=== PATIENT | female | born 1955 | race Caucasian/White ===

== ENCOUNTER 2017-10-16 09:29 | Emergency (ER) | payer OTHER, MEDICARE ==
[2017-10-16 09:47] VITALS: BP 138/90
--- NOTE | 2017-10-16 09:47 | UC ---
Lower Extremity/Ankle HPI - HPI Summary HPI Summary: This nice 62-year-old lady has a past medical history of cerebral ataxia. Patient reports falling 6 days ago landing on her right side. The last 6 days patient has had pain in her left hip and femur. States the pain is about 2 or 3 at rest and gets up to 8 out of 10 with ambulation does have difficulty ambulating with a walker. - History of Current Complaint Chief Complaint: UCLowerExtremity Stated Complaint: LEG INJURY Time Seen by Provider: 10/16/17 09:46 Hx Obtained From: Patient ?: No Onset/Duration: Sudden Onset, Lasting Days - 6, Still Present Severity Initially: Moderate Severity Currently: Moderate Aggravating Factor(s): Standing, Ambulation Alleviating Factor(s): Rest Able to Bear Weight: Yes - Allergies/Home Medications Allergies/Adverse Reactions: Allergies Allergy/AdvReac Type Severity Reaction Status Date / Time sulfamethoxazole Allergy Rash Verified 10/16/17 09:33 [From Bactrim] trimethoprim [From Bactrim] Allergy Rash Verified 10/16/17 09:33 PMH/Surg Hx/FS Hx/Imm Hx Previously Healthy: No Endocrine History: Dyslipidemia Cardiovascular History: Hypertension Neurological History: Other Other Neurological History: cerebral ataxia - Surgical History Surgical History: Yes Surgery Procedure, Year, and Place: APPENDIX - 1960. - 1993. RT BROKEN FEMUR - 2011 [facility] [place] - Family History Known Family History: Positive: None - Social History Occupation: Disabled Lives: With Family Alcohol Use: None Substance Use Type: None Smoking Status (MU): Never Smoked Tobacco Review of Systems Constitutional: Negative Skin: Negative Eyes: Negative ENT: Negative Respiratory: Negative Cardiovascular: Negative Gastrointestinal: Negative Genitourinary: Negative Motor: Negative Neurovascular: Negative Musculoskeletal: Arthralgia - Right hip and femur Neurological: Negative Psychological: Negative Is Patient Immunocompromised?: No All Other Systems Reviewed And Are Negative: Yes Physical Exam Triage Information Reviewed: Yes Appearance: Well-Appearing, No Pain Distress, Well-Nourished Vital Signs Reviewed: Yes Eye Exam: Normal Eyes: Positive: Conjunctiva Clear ENT Exam: Normal ENT: Positive: Normal ENT inspection, Hearing grossly normal. Negative: Nasal congestion, Trismus, Muffled voice, Hoarse voice Dental Exam: Normal Neck exam: Normal Neck: Positive: Supple, Nontender, No Lymphadenopathy Respiratory Exam: Normal Respiratory: Positive: Chest non-tender, Lungs clear, Normal breath sounds, No respiratory distress, No accessory muscle use Cardiovascular Exam: Normal Cardiovascular: Positive: RRR, No Murmur, Pulses Normal, Brisk Capillary Refill Musculoskeletal Exam: Normal Musculoskeletal: Positive: Strength Intact, ROM Intact, No Edema Neurological Exam: Normal Neurological: Positive: Alert, Muscle Tone Normal Psychological Exam: Normal Skin Exam: Normal Diagnostics - Radiology No standard instances Xray Interpretation: No Acute Changes Radiology Interpretation Completed By: ED Physician, Radiologist - Denies be an aneurysm. Lower Extremity Course/Dx - Course Course Of Treatment: Reviewed x-ray reports with patient and . They wish to follow up with primary care doctor on Wednesday. Patient has been only taking Tylenol 1 time a day. I encouraged her to take dose as recommended on bottle. Patient refuses any other pain medication - Differential Dx/Diagnosis Provider Diagnoses: Contusion right hip and thigh Discharge - Sign-Out/Discharge Documenting (check all that apply): Discharge - Discharge Plan Condition: Stable Disposition: HOME Patient Education Materials: Acetaminophen (By mouth), Hip Contusion (ED) Referrals: Sundar Davis MD [Primary Care Provider] - 2 Days Additional Instructions: Ambulate with walker. Tylenol for pain. to emergency department for increasing or worsening pain or symptoms - Billing Disposition and Condition Condition: STABLE Disposition: HOME
--- NOTE | 2017-10-16 10:41 | RAD ---
INDICATION: Right hip injury. COMPARISON: Comparison is made with prior x-ray studies of the right hip from October 26, 2011 and October 27, 2011 TECHNIQUE: An AP view of the pelvis and frontal and lateral views of the right hip were obtained. FINDINGS: The patient is status post operative reduction internal fixation of an intertrochanteric and subtrochanteric fracture of the proximal right femur. There is an intramedullary sanjana and femoral head nail present in place. The orthopedic hardware appears intact. No acute fracture is seen. Joint spaces appear maintained. IMPRESSION: STATUS POST OPERATIVE REDUCTION AND INTERNAL FIXATION OF A REMOTE FRACTURE OF THE PROXIMAL RIGHT FEMUR, NO ACUTE FRACTURE IS SEEN.
--- NOTE | 2017-10-16 10:43 | RAD ---
INDICATION: Right femur injury. TECHNIQUE: 2 views of the right femur were obtained. FINDINGS: The patient is status post operative reduction and internal fixation of a fracture of the proximal right femur. There is an intramedullary sanjana in place transfixed distally with a single screw. There is also a femoral head nail in place. There is lateral soft tissue swelling. No acute fracture is seen. IMPRESSION: POSTSURGICAL CHANGES, NO EVIDENCE FOR ACUTE FRACTURE.
== END 2017-10-16 11:02 | disposition home or self-care (01) ==
LOC: UCEAST 09:29
DX: S70.01XA Contusion of right hip, initial encounter (principal); Z88.2 Allergy status to sulfonamides; S70.11XA Contusion of right thigh, initial encounter; W19.XXXA Unspecified fall, initial encounter; Y93.9 Activity, unspecified; Y92.9 Unspecified place or not applicable; G11.9 Hereditary ataxia, unspecified; E78.5 Hyperlipidemia, unspecified; I10 Essential (primary) hypertension
CPT/HCPCS: 99211; G0463

== ENCOUNTER 2021-06-08 20:54 | Observation (INO) ==
[2021-06-08] MEDS ORDERED: NS 0.9% 1000 ml BAG 1,000 ML IV ONE (23:57)
[2021-06-08] MEDS ORDERED: Ondansetron 4 mg VIAL 2 MG/ML 2 ml VIAL IV ONE (23:57)
[2021-06-09 00:57] LABS: ABS Eosinophils 0.1 10^3/ul (0-0.6); ABS Lymphocytes 1.3 10^3/ul (1.0-4.8); ABS Monocytes 0.9 10^3/ul (0-0.8); ABS Neutrophils 4.8 10^3/ul (1.5-7.7); Eosinophil % 1.6 %; Hematocrit 37 % (35-47); Lymphocyte % 18.7 %; Mean Corpuscular HGB Conc 33 g/dL (31-36); Mean Corpuscular Hemoglobin 28 pg (27-31); Mean Corpuscular Volume 87 fL (80-97); Mean Platelet Volume 7.9 fL (7.4-10.4); Platelet Count 267 10^3/uL (150-450); Red Blood Count 4.24 10^6 /uL (3.70-4.87); Red Cell Distribution Width 14 % (10-15); White Blood Count 7.2 10^3/uL (3.5-10.8)
[2021-06-09 01:13] LABS: Anion Gap 9 mmol/L (2-11); Blood Urea Nitrogen 21 mg/dL (6-24); CO2 Carbon Dioxide 29 mmol/L (22-32); Calcium 9.3 mg/dL (8.6-10.3); Chloride 103 mmol/L (101-111); Glucose 91 mg/dL (70-100); Potassium 3.6 mmol/L (3.5-5.0); Sodium 141 mmol/L (135-145); eGFR CKD-EPI 107.4 (>60)
[2021-06-09 01:19] LABS: Troponin I 0.03 ng/mL (<0.03)
[2021-06-09] MEDS ORDERED: Iodixanol (CONTRAST) 320 MG/ML 100 ML SDV IV ONE (01:30)
[2021-06-09 04:21] LABS: C Reactive Protein 6.34 mg/L (<8.01)
[2021-06-09] MEDS: cefTRIAXone 1 gm/50 mL NS BAG 1 GM/50 ML BAG IVPB SCH (05:05)
[2021-06-09] MEDS: Enoxaparin 40 MG/0.4 ML SYR SUBCUT SCH (05:05)
[2021-06-09 05:13] LABS: Troponin I 0.04 ng/mL (<0.03)
[2021-06-09 10:12] LABS: Troponin I 0.03 ng/mL (<0.03)
[2021-06-10 05:52] LABS: Hematocrit 34 % (35-47); Hemoglobin 11.1 g/dL (12.0-16.0); Mean Corpuscular HGB Conc 33 g/dL (31-36); Mean Corpuscular Hemoglobin 29 pg (27-31); Mean Corpuscular Volume 87 fL (80-97); Mean Platelet Volume 7.8 fL (7.4-10.4); Platelet Count 251 10^3/uL (150-450); Red Blood Count 3.89 10^6 /uL (3.70-4.87); Red Cell Distribution Width 14 % (10-15); White Blood Count 6.4 10^3/uL (3.5-10.8)
[2021-06-10 06:14] LABS: Calcium 8.9 mg/dL (8.6-10.3); Potassium 3.5 mmol/L (3.5-5.0); eGFR CKD-EPI 108.5 (>60)
[2021-06-10] MEDS: Enoxaparin 40 MG/0.4 ML SYR SUBCUT SCH (08:29)
[2021-06-10] MEDS: cefTRIAXone 1 gm/50 mL NS BAG 1 GM/50 ML BAG IVPB SCH (08:29)
[2021-06-10] MEDS ORDERED: Senna TAB 8.6 mg TAB PO PRN (11:45)
[2021-06-10 15:55] VITALS: BP 145/80
== END 2021-06-10 17:05 | disposition home or self-care (01) ==
LOC: ED 20:54 → INTOOBSV 06-09 04:12 → EDHOLD 06-09 04:12 → SUATTDRO 06-09 04:12 → MEDTELE 06-09 08:38
PROVIDERS: ADMIT Internal Medicine; ATTEND Internal Medicine

== ENCOUNTER 2021-06-18 13:52 | Inpatient (IN) ==
[2021-06-18 18:17] LABS: ABS Eosinophils 0.1 10^3/ul (0-0.6); ABS Lymphocytes 1.1 10^3/ul (1.0-4.8); ABS Monocytes 0.9 10^3/ul (0-0.8); ABS Neutrophils 6.8 10^3/ul (1.5-7.7); Eosinophil % 1.7 %; Hematocrit 40 % (35-47); Hemoglobin 13.3 g/dL (12.0-16.0); Lymphocyte % 12.5 %; Mean Corpuscular HGB Conc 34 g/dL (31-36); Mean Corpuscular Hemoglobin 29 pg (27-31); Mean Corpuscular Volume 87 fL (80-97); Mean Platelet Volume 8.4 fL (7.4-10.4); Nucleated Red Blood Cells % 0.1; Platelet Count 317 10^3/uL (150-450); Red Blood Count 4.55 10^6 /uL (3.70-4.87); Red Cell Distribution Width 14 % (10-15)
[2021-06-18 18:32] LABS: Albumin 4.1 g/dL (3.2-5.2); Albumin/Globulin Ratio 1.6 (1-3); C Reactive Protein 1.11 mg/L (<8.01); Calcium 9.6 mg/dL (8.6-10.3); Globulin 2.6 g/dL (2-4); Total Bilirubin 0.4 mg/dL (0.2-1.0); Total Protein 6.7 g/dL (6.4-8.9); eGFR CKD-EPI 96.5 (>60)
[2021-06-18 19:11] LABS: Potassium 3.6 mmol/L (3.5-5.0)
[2021-06-18 19:58] LABS: Urine Appearance Cloudy; Urine Bilirubin Negative (Negative); Urine Blood Negative (Negative); Urine Color Yellow; Urine Glucose Negative (Negative); Urine Ketones Trace (Negative); Urine Nitrite Negative (Negative); Urine Protein 1+(30 mg/dL) (Negative); Urine Specific Gravity 1.018 (1.002-1.030); Urine Urobilinogen Negative (Negative)
[2021-06-18 20:03] LABS: Urine Bacteria 1+ (Absent); Urine Red Blood Cell Trace(0-2/hpf) (Absent); Urine Squamous Epithelial Cell Present (Absent); Urine White Blood Cell 1+(6-10/hpf) (Absent)
[2021-06-18] MEDS ORDERED: Immune Globulin IV Order (CPOE ENTRY PROTOCOL) IV SCH (21:00)
[2021-06-18] MEDS ORDERED: diPHENhydraMINE IV 50 MG/ML 1 ml VIAL (BENADRYL) IV ONE (21:24)
[2021-06-18 22:05] LABS: TSH Ultra Thyroid Stim Horm 2.47 mcIU/mL (0.34-5.60)
[2021-06-18] MEDS ORDERED: NS 0.9% 1000 ml BAG 1,000 ML IV ONE (22:21)
[2021-06-18 22:30] LABS: Body Fluid Source Cerebral Spinal
[2021-06-18 22:36] LABS: Body Fluid Appearance Clear; Body Fluid Color Colorless; CSF Tube # 4
[2021-06-18 22:45] LABS: CSF Glucose 77 mg/dL (40-70)
[2021-06-18 22:52] LABS: Body Fluid Appearance Clear; Body Fluid Color Colorless; Body Fluid Source Cerebral Spinal; CSF Tube # 1
[2021-06-18 22:58] LABS: Body Fluid WBC 0 /mcL
[2021-06-18 23:02] LABS: Erythrocyte Sed Rate 4 mm/Hr (0-29)
[2021-06-18 23:14] LABS: Body Fluid WBC 0 /mcL
[2021-06-19] MEDS: PRIVIGEN IV SCH ×2 (00:18→22:21)
[2021-06-19] MEDS: IMMUNE GLOB IV SCH ×2 (00:18→22:21)
[2021-06-19] MEDS ORDERED: NS 0.9% 1000 ml BAG 1,000 ML IV SCH (00:45)
[2021-06-19 01:02] LABS: Rapid COVID-19 Molecular Undetected (Undetected)
[2021-06-19] MEDS: Enoxaparin 40 MG/0.4 ML SYR SUBCUT SCH ×2 (03:15→20:59)
[2021-06-19 06:34] LABS: Calcium 8.2 mg/dL (8.6-10.3); Potassium 3.2 mmol/L (3.5-5.0); eGFR CKD-EPI 101.4 (>60)
[2021-06-19] MEDS: Aspirin EC 81 mg TAB.EC (enteric coated) PO SCH (08:04)
[2021-06-19] MEDS ORDERED: Potassium Chlor 20 meq TAB.ER PO ONE (09:03)
[2021-06-19] MEDS: KCL 20 MEQ/100 ML IVPREMIX 20 MEQ/100 ML BAG IV SCH ×2 (09:37→12:08)
[2021-06-19] MEDS ORDERED: Cyanocobalamin INJ 1,000 MCG/ML VIAL 1 ML VIAL IM ONE (10:00)
[2021-06-19 10:43] LABS: Magnesium 1.8 mg/dL (1.9-2.7)
[2021-06-19] MEDS ORDERED: Gadoteridol (CONTRAST) 279.3 MG/ML 10 ML IV ONE (19:06)
[2021-06-19] MEDS ORDERED: diPHENhydraMINE IV 50 MG/ML 1 ml VIAL (BENADRYL) IV SCH (20:15)
[2021-06-19] MEDS: Acetaminophen IV 1 GM/100ML 100 ML IV SCH (20:59)
[2021-06-20] MEDS ORDERED: cefTRIAXone 1 gm/50 mL NS BAG 1 GM/50 ML BAG IVPB SCH (01:00)
[2021-06-20 06:43] LABS: Calcium 8.1 mg/dL (8.6-10.3); Magnesium 1.7 mg/dL (1.9-2.7); Potassium 3.7 mmol/L (3.5-5.0); eGFR CKD-EPI 107.9 (>60)
[2021-06-20] MEDS ORDERED: Magnesium Sulfate IV 3 GM in NS 0.9% 100 ml BAG 100 ML IVPB ONE (07:45)
[2021-06-20] MEDS: Aspirin EC 81 mg TAB.EC (enteric coated) PO SCH (09:25)
[2021-06-20] MEDS ORDERED: diPHENhydraMINE IV 50 MG/ML 1 ml VIAL (BENADRYL) IV ONE (19:39)
[2021-06-20] MEDS: Acetaminophen IV 1 GM/100ML 100 ML IV SCH (20:55)
[2021-06-20] MEDS: Enoxaparin 40 MG/0.4 ML SYR SUBCUT SCH (20:58)
[2021-06-20] MEDS ORDERED: Senna TAB 8.6 mg TAB PO PRN (21:24)
[2021-06-20] MEDS: IMMUNE GLOB IV SCH (22:04)
[2021-06-20] MEDS: PRIVIGEN IV SCH (22:04)
[2021-06-21 07:36] LABS: Calcium 8.2 mg/dL (8.6-10.3); Potassium 3.8 mmol/L (3.5-5.0); eGFR CKD-EPI 107.9 (>60)
[2021-06-21] MEDS: Aspirin EC 81 mg TAB.EC (enteric coated) PO SCH (08:24)
[2021-06-21] MEDS ORDERED: diPHENhydraMINE IV 50 MG/ML 1 ml VIAL (BENADRYL) IV ONE (19:49)
[2021-06-21] MEDS: Acetaminophen IV 1 GM/100ML 100 ML IV SCH (20:42)
[2021-06-21] MEDS: Enoxaparin 40 MG/0.4 ML SYR SUBCUT SCH (20:50)
[2021-06-21] MEDS: PRIVIGEN IV SCH (21:35)
[2021-06-21] MEDS: IMMUNE GLOB IV SCH (21:35)
[2021-06-21] MEDS ORDERED: Ondansetron 4 mg VIAL 2 MG/ML 2 ml VIAL IV ONE (23:28)
[2021-06-22] MEDS: Aspirin EC 81 mg TAB.EC (enteric coated) PO SCH (08:19)
[2021-06-22] MEDS ORDERED: diPHENhydraMINE IV 50 MG/ML 1 ml VIAL (BENADRYL) IV ONE (20:15)
[2021-06-22] MEDS ORDERED: Ondansetron 4 mg VIAL 2 MG/ML 2 ml VIAL IV PRN (20:21)
[2021-06-22] MEDS: Acetaminophen IV 1 GM/100ML 100 ML IV SCH (20:55)
[2021-06-22] MEDS: IMMUNE GLOB IV SCH (22:07)
[2021-06-22] MEDS: PRIVIGEN IV SCH (22:07)
[2021-06-22] MEDS: Enoxaparin 40 MG/0.4 ML SYR SUBCUT SCH (22:29)
[2021-06-23] MEDS: Aspirin EC 81 mg TAB.EC (enteric coated) PO SCH (07:16)
[2021-06-23 11:51] LABS: SS-A/Ro Antibody <0.2 U; SS-B/La Antibody <0.2 U
[2021-06-23 12:49] VITALS: BP 139/84
[2021-06-23 15:39] LABS: Albumin 3.1 g/dL (3.4-4.7); Albumin/Globulin Ratio 1.12; Gamma Globulin 0.7 g/dL (0.6-1.6); Total Protein(PEP) 5.8 g/dL (6.3 - 7.9)
[2021-06-24 12:02] LABS: Asialo GM1 IgG Antibody Negative (Negative); Asialo GM1 IgM Antibody Negative (Negative); Disialo GD1b IgG Antibody Negative (Negative); Disialo GD1b IgM Antibody Negative (Negative); Monosialo GM1 IgG Antibody Negative (Negative); Monosialo GM1 IgM Antibody Negative (Negative)
== END 2021-06-23 16:15 | disposition home health service (06) | DRG 94 ==
LOC: MEDTELE 13:52 → ED 13:52 → SUATTDRO 06-19 00:28 → OBSVTOIN 06-19 00:28 → MEDTELE 06-19 04:42
PROVIDERS: ADMIT Internal Medicine; ATTEND Internal Medicine

== ENCOUNTER 2021-07-30 09:37 | Observation (INO) ==
[2021-07-30] MEDS ORDERED: methylPREDNISolone 125 mg 2 ML VIAL IV ONE (10:02)
[2021-07-30] MEDS ORDERED: NS 0.9% 1000 ml BAG 1,000 ML IV SCH (10:15)
[2021-07-30] MEDS: Albuterol HFA INHALER 8 gm MDI INH ONE ×2 (11:01→12:09)
[2021-07-30 11:10] LABS: ABS Eosinophils 0.1 10^3/ul (0-0.6); ABS Lymphocytes 0.7 10^3/ul (1.0-4.8); ABS Monocytes 0.4 10^3/ul (0-0.8); ABS Neutrophils 2.8 10^3/ul (1.5-7.7); Eosinophil % 1.8 %; Hematocrit 36 % (35-47); Hemoglobin 11.9 g/dL (12.0-16.0); Lymphocyte % 17.4 %; Mean Corpuscular HGB Conc 33 g/dL (31-36); Mean Corpuscular Hemoglobin 29 pg (27-31); Mean Corpuscular Volume 88 fL (80-97); Mean Platelet Volume 7.2 fL (7.4-10.4); Platelet Count 364 10^3/uL (150-450); Red Blood Count 4.12 10^6 /uL (3.70-4.87); Red Cell Distribution Width 16 % (10-15); White Blood Count 4.1 10^3/uL (3.5-10.8)
[2021-07-30 11:15] LABS: Rapid COVID-19 Molecular Detected (Undetected)
[2021-07-30 11:28] LABS: Troponin I 0.01 ng/mL (<0.03)
[2021-07-30 11:46] LABS: Albumin 3.7 g/dL (3.2-5.2); Albumin/Globulin Ratio 1.1 (1-3); Calcium 8.9 mg/dL (8.6-10.3); Globulin 3.4 g/dL (2-4); Magnesium 1.9 mg/dL (1.9-2.7); Potassium 4.1 mmol/L (3.5-5.0); Total Bilirubin 0.4 mg/dL (0.2-1.0); Total Protein 7.1 g/dL (6.4-8.9); eGFR CKD-EPI 110.4 (>60)
[2021-07-30] MEDS ORDERED: Iohexol 350 (CONTRAST) 500 ML MDV IV ONE (11:53)
[2021-07-30] MEDS ORDERED: Enoxaparin 60 MG/0.6 ML SYR SUBCUT ONE (14:30)
[2021-07-30 16:57] LABS: Urine Appearance Clear; Urine Color Yellow; Urine Ketones 1+ (Negative); Urine Specific Gravity 1.015 (1.002-1.030); Urine Urobilinogen Negative (Negative); Urine pH 5 (5-9)
[2021-07-30 16:58] LABS: Urine Bilirubin 1+ (Negative); Urine Blood 1+ (Negative); Urine Glucose Negative (Negative); Urine Nitrite Negative (Negative); Urine Protein 1+(30 mg/dL) (Negative)
[2021-07-30] MEDS ORDERED: Enoxaparin 80 MG/0.8 ML SYR SUBCUT SCH (17:00)
[2021-07-30 17:11] LABS: Urine Bacteria 1+ (Absent); Urine Red Blood Cell 3+(>10/hpf) (Absent); Urine Squamous Epithelial Cell Present (Absent); Urine White Blood Cell 2+(11-20/hpf) (Absent)
[2021-07-30] MEDS ORDERED: Remdesivir 100 mg Vial 200 MG in NS 0.9% 250 ml 210 ML IV ONE (19:39)
[2021-07-30] MEDS: CMCS: Simvastatin 20 mg TAB (NF) PO SCH (20:11)
[2021-07-30] MEDS: diPHENhydraMINE 25 mg TAB PO SCH (20:11)
[2021-07-30] MEDS: Nystatin SUSPENSION 100,000 UNITS/ML UDC PO SCH (20:12)
[2021-07-30 20:55] LABS: INR 1.16 (0.86-1.15)
[2021-07-31 06:48] LABS: ABS Lymphocytes 0.8 10^3/ul (1.0-4.8); ABS Monocytes 0.5 10^3/ul (0-0.8); ABS Neutrophils 3.8 10^3/ul (1.5-7.7); Hematocrit 34 % (35-47); Hemoglobin 11.1 g/dL (12.0-16.0); Lymphocyte % 15.3 %; Mean Corpuscular HGB Conc 33 g/dL (31-36); Mean Corpuscular Hemoglobin 29 pg (27-31); Mean Corpuscular Volume 88 fL (80-97); Mean Platelet Volume 7.1 fL (7.4-10.4); Platelet Count 369 10^3/uL (150-450); Red Blood Count 3.83 10^6 /uL (3.70-4.87); Red Cell Distribution Width 16 % (10-15); White Blood Count 5.1 10^3/uL (3.5-10.8)
[2021-07-31 07:10] LABS: Albumin 3.5 g/dL (3.2-5.2); Albumin/Globulin Ratio 1.1 (1-3); Calcium 8.7 mg/dL (8.6-10.3); Globulin 3.2 g/dL (2-4); Potassium 4.4 mmol/L (3.5-5.0); Total Bilirubin 0.3 mg/dL (0.2-1.0); Total Protein 6.7 g/dL (6.4-8.9); eGFR CKD-EPI 113.4 (>60)
[2021-07-31 07:12] LABS: INR 1.1 (0.86-1.15)
[2021-07-31] MEDS: Nystatin SUSPENSION 100,000 UNITS/ML UDC PO SCH ×4 (09:17→20:50)
[2021-07-31] MEDS: Aspirin EC 81 mg TAB.EC (enteric coated) PO SCH (09:17)
[2021-07-31] MEDS: Enoxaparin 60 MG/0.6 ML SYR SUBCUT SCH (16:23)
[2021-07-31] MEDS: CMCS: Simvastatin 20 mg TAB (NF) PO SCH (20:48)
[2021-07-31] MEDS: diPHENhydraMINE 25 mg TAB PO SCH (20:49)
[2021-07-31] MEDS ORDERED: Remdesivir 100 mg Vial 100 MG in NS 0.9% 250 ml 230 ML IV SCH (21:00)
[2021-08-01 02:01] LABS: Urine Color Yellow
[2021-08-01 02:02] LABS: Urine Appearance Clear; Urine Ketones Negative (Negative); Urine Protein 1+(30 mg/dL) (Negative); Urine Urobilinogen Positive (Negative); Urine pH 6 (5-9)
[2021-08-01 02:03] LABS: Urine Bilirubin Negative (Negative); Urine Blood Negative (Negative); Urine Glucose Negative (Negative); Urine Nitrite Negative (Negative)
[2021-08-01 02:17] LABS: Urine Bacteria Absent (Absent); Urine Red Blood Cell Absent (Absent); Urine White Blood Cell Trace(0-5/hpf) (Absent)
[2021-08-01 05:44] LABS: INR 1.07 (0.86-1.15)
[2021-08-01 05:54] LABS: Albumin 3.6 g/dL (3.2-5.2); Albumin/Globulin Ratio 1.1 (1-3); Calcium 8.8 mg/dL (8.6-10.3); Globulin 3.3 g/dL (2-4); Potassium 4.2 mmol/L (3.5-5.0); Total Bilirubin 0.3 mg/dL (0.2-1.0); Total Protein 6.9 g/dL (6.4-8.9); eGFR CKD-EPI 116.7 (>60)
[2021-08-01] MEDS: Aspirin EC 81 mg TAB.EC (enteric coated) PO SCH (09:35)
[2021-08-01] MEDS: Nystatin SUSPENSION 100,000 UNITS/ML UDC PO SCH ×3 (09:35→16:23)
[2021-08-01] MEDS ORDERED: Remdesivir 100 mg Vial 100 MG in NS 0.9% 250 ml 230 ML IV SCH (10:00)
[2021-08-01 16:09] VITALS: BP 130/68
[2021-08-01] MEDS: Enoxaparin 60 MG/0.6 ML SYR SUBCUT SCH (16:23)
== END 2021-08-01 16:45 | disposition home or self-care (01) ==
LOC: ED 09:37 → EDHOLD 09:37 → MED 17:47
PROVIDERS: ADMIT Internal Medicine; ATTEND Internal Medicine